=== PATIENT | male | born 1970 | race Two or more races ===

== ENCOUNTER 2016-07-24 07:23 | Emergency (ER) | payer OTHER ==
[~2016-07-24] VITALS: Ht 167.6 cm; Wt 70.0 kg
[~2016-07-24 07:23] MED LIST: FIORTAB4 PO
[2016-07-24 07:25] VITALS: BP 125/77; PULSE 54; RESP 16; TEMP 97.7; O2SAT 97
[2016-07-24] MEDS ORDERED: AMBI10TA PO (07:57)
--- NOTE | 2016-07-24 07:57 | PD ---
HPI Chief Complaint: Medical Clearance Time Seen by Provider: 07:41 Travel History International Travel<30 days: No Contact w/Intl Traveler<30days: No Traveled to known affect area: No History of Present Illness HPI The patient is a 45-year-old male who presents to the emergency department for insomnia. The patient states his father on June 27, 2016. The patient states that since his father he's had difficulty sleeping at night. The patient does have a history of insomnia, however, states his been worse over the last week, he is only able to sleep for several hours per night and then will awaken, with thoughts of his father. The patient was seen by his primary physician and prescribed trazodone 300 mg at night which she states this helped moderately, however, he still unable to sleep throughout the night. He denies any change in his appetite. The patient states he was drinking alcohol prior to his father , however, has stopped drinking alcohol. He only smokes one to 2 cigarettes per day. He denies the ingestion of large amounts of caffeine/coffee throughout the day. The patient denies any depressive thoughts, suicidal ideation, homicidal ideation, hallucinations, or delusions. The patient does not want to see a psychiatrist. The patient's symptoms are moderate, exacerbated after his father , and slightly alleviated with trazodone. PFSH Social History Alcohol Use: Yes Tobacco Use: Yes (2-3 cigarettes/day) Substance Use: No Allergies-Medications Reported Meds & Prescriptions Reported Meds & Active Scripts Active Fioricet (Acetaminophen/Butalbital/Caffeine) Tab 1 Tab PO Q6HPRN FOR HEADACHE Review of Systems HENT: No: Lightheadedness Cardiovascular: No: Chest Pain or Discomfort Respiratory: No: Shortness of Breath Gastrointestinal: No: Nausea, Vomiting, Loss of Appetite Neurologic: No: Headache Psychiatric: Positive: Other (as noted in history of present illness) Physical Exam Narrative GENERAL: Awake, alert, very pleasant 45-year-old male who appears his stated age and is in no acute respiratory distress. SKIN: Warm and dry. HEAD: Atraumatic. Normocephalic. EYES: No injection or drainage. ENT: No nasal bleeding or discharge. Mucous membranes pink and moist. NECK: Trachea midline. No JVD. CARDIOVASCULAR: Regular rate and rhythm. No murmur appreciated. RESPIRATORY: No accessory muscle use. Clear to auscultation. Breath sounds equal bilaterally. MUSCULOSKELETAL: No obvious deformities. No clubbing. No cyanosis. No edema. NEUROLOGICAL: Awake and alert. No obvious cranial nerve deficits. Motor grossly within normal limits. Normal speech. Nonfocal. PSYCHIATRIC: Appropriate mood and affect; insight and judgment normal. Answers questions appropriately. Data Data Last Documented VS Vital Signs Date Time Temp Pulse Resp B/P Pulse Ox O2 Delivery O2 Flow Rate FiO2 07/24/16 07:25 97.7 54 16 125/77 97 Room Air MDM Medical Decision Making Medical Screen Exam Complete: Yes Emergency Medical Condition: Yes Medical Record Reviewed: Yes Differential Diagnosis Differential diagnosis includes insomnia, depressive disorder NOS, adjustment reaction, grief, mood disorder. Narrative Course The patient is alert and oriented, normal affect, and denies any suicidal/ homicidal ideation. I offered the patient to discuss his current situation with the on-call psychiatric lead applier, however, the patient is not wanted talk with a psychiatrist. The patient does not appear to be a harm to himself or others, but does appear to be suffering grief with increased amount of insomnia since his father . The patient is advised to have good sleep hygiene, good a bed same time every night, no caffeine afternoon, and to avoid alcohol. He is advised to continue taking the trazodone, I will add Ambien as needed when necessary for the short duration, however, he is advised to follow-up with his primary physician if symptoms persist. Return for any increase in psychiatric symptoms. Diagnosis Primary Impression: Insomnia Qualified Code: G47.00 - Insomnia, unspecified type Additional Impression: Adjustment reaction Qualified Code: F43.20 - Adjustment disorder, unspecified type Patient Instructions: General Instructions Additional Instructions: No caffeine afternoon. Good a bed at the same time every night. Avoid alcohol. Continue trazodone. Ambien as needed. Follow-up with her primary physician. Return if symptoms worsen or progress. Med/Other Pt SpecificInfo: Prescription(s) given Scripts Zolpidem (Ambien)10 Mg Tab10 Mg PO HS PRN (INSOMNIA) #7 TAB Ref 0 Prov:Ezra Dugan MD 07/24/16 Disposition: 01 DISCHARGE HOME Condition: Stable Ezra Dugan MD Jul 24, 2016 07:57
[2016-07-24] MEDS ORDERED: TRAZ150T75 PO (08:10)
[2016-07-24 08:37] VITALS: BP 130/78; TEMP 97.8
== END 2016-07-24 08:37 | disposition home or self-care (01) ==
LOC: NEPC 07:23
DX: F51.02 Adjustment insomnia (principal); Z72.0 Tobacco use; F10.10 Alcohol abuse, uncomplicated
CPT/HCPCS: 99283